=== PATIENT | male | born 1975 | race Caucasian/White ===

== ENCOUNTER 2017-07-11 17:31 | Emergency (ER) | payer BC ==
[~2017-07-11] VITALS: Ht 154.9 cm; Wt 120.9 kg
[2017-07-11 17:33] VITALS: Ht 154.9 cm; Wt 120.9 kg
[2017-07-11] MEDS ORDERED: AMLO-114 PO (18:09)
[2017-07-11] MEDS ORDERED: FEXO1TAB58 PO (18:09)
[2017-07-11] MEDS ORDERED: OPTIRAY 320 IV PRN (18:15)
[2017-07-11 18:31] LABS: ISTAT CREATININE 1.2 mg/dl (0.6-1.3); ISTAT HEMOGLOBIN 17.3 g/dl (14.0-18.0); ISTAT IONIZED CALCIUM 1.15 mmol/l (1.12-1.32)
[2017-07-11 18:38] LABS: BASO % 0.2 %; BASO ABS # 0.01 K/uL (0-0.2); COMPLETE YES; EOS % 0.7 %; IG% 0.2 %; LYMPH % 24.6 %; LYMPH ABS # 1.47 K/uL (1.2-3.4); MEAN CELL VOLUME 90.3 fL (80-100); MEAN CORPUSCULAR HEMOGLOBIN 31.2 pg (25-34); MEAN CORPUSCULAR HGB CONC 34.5 g/dl (32-36); NEUT % 64.3 %; PLATELET COUNT 158 K/uL (130-400); RED BLOOD COUNT 5.65 M/uL (4.7-6.1); WHITE BLOOD COUNT 5.98 K/uL (4.8-10.8)
[2017-07-11 18:45] LABS: BUN/CREATININE RATIO 10.8 (10-20); CALCIUM 9.2 mg/dl (8.5-10.1); CREATININE 1.1 mg/dl (0.60-1.40); POTASSIUM 3.9 mmol/L (3.5-5.1)
--- NOTE | 2017-07-11 18:53 | DIAGNOSTIC IMAGING REPORT ---
HEAD WITHOUT CONTRAST (CT) CLINICAL HISTORY: 41 years-old Male presenting with eval for mass/bleed, right side headache, right eye pressure. TECHNIQUE: Multidetector CT imaging of the head was performed without the use of intravenous contrast. IV contrast: None. A dose lowering technique was used consistent with the principles of ALARA (as low as reasonably achievable). COMPARISON: None. CT DOSE (mGy.cm): The estimated cumulative dose is 1204.42 mGy.cm. 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 Ventricles and sulci normal in size. Brain parenchyma normal in appearance with preserved grullon-white differentiation. No mass effect or midline shift. No hemorrhage or acute territorial infarct. No extra-axial fluid collection. Paranasal sinuses and mastoid air cells clear. Calvarium intact. Visualized portions of the right orbit normal appearing. IMPRESSION: 1. No acute intracranial pathology. Electronically signed by: Arnaldo Ruiz M.D. 07/11/2017 6:52 PM Dictated Date/Time: 07/11/2017 6:48 PM
--- NOTE | 2017-07-11 20:00 | DIAGNOSTIC IMAGING REPORT ---
CT SCAN OF THE ORBITS WITH IV CONTRAST CLINICAL HISTORY: Right-sided headache. Eye pressure. COMPARISON STUDY: No priors. TECHNIQUE: High-resolution CT scan of the orbits is performed following the IV administration of 120 mL of Optiray 320. Images are reviewed in the axial, sagittal, and coronal planes. IV contrast was administered without complication. A dose lowering technique was utilized adhering to the principles of ALARA. FINDINGS: The bony orbits are intact. Orbital contents are normal in appearance. There is no evidence of intra- or extraconal mass. The extraocular muscles are normal and symmetric. The periorbital soft tissues are within normal limits. There is trace mucosal thickening in the left maxillary antrum. The remaining paranasal sinuses are clear as imaged. The mastoid air cells are well pneumatized. The calvarium appears intact. The visualized brain parenchyma is within normal limits. Parotid glands are normal in appearance. IMPRESSION: Normal CT evaluation of the orbits. Dictated: 07/11/2017 6:49 PM Transcribed: 07/11/2017 8:00 PM [email or web address] Electronically signed by: Chuy Langston M.D. 07/11/2017 8:24 PM Dictated Date/Time: 07/11/2017 6:49 PM
--- NOTE | 2017-07-11 20:07 | EMERGENCY ROOM VISIT NOTE ---
History Report prepared by Ryan: Rubio Levy Under the Supervision of: Dr. Chuck Madison M.D. First contact with patient: 17:39 Chief Complaint: EYE PAIN Stated Complaint: EYE PRESSURE History of Present Illness The patient is a 41 year old male who presents to the Emergency Room with complaints of right eye pressure that began two days ago. He rates his pain a 2/ 10 in severity. About 5/6 days ago, the patient began to have a pressure headache with bilateral upper dental soreness. He went to the Dentist for a cleaning three days ago and was told that it may be sinusitis. He woke up in the morning two days ago and began having pressure in his right eye. His pressure worsens when he moves his eyes. He also began to experience a sore throat with some bilateral ear pain. He denies any fevers, seeing halos around lights, loss of vision, or changes in his color vision. He does note intermittent vision blurring, with his vision being blurry currently. Prior to arrival, the patient was at [facility] for his blurry vision. His results were 20/15 in his left eye and 20/25 in his right eye. They then referred him to the ER. He denies any glasses or contacts because of his Lasik eye surgery. He has a past medical history of hypertension. Source of History: patient Onset: two days ago Position: eye (right) Symptom Intensity: 2/10 Quality: pressure Timing: constant Modifying Factors (Worsening): movement (eye movement) Associated Symptoms: No fevers Note: He is having intermittent blurring of his vision. He denies any halos around lights, vision loss, or color changes. Review of Systems See HPI for pertinent positives & negatives. A total of 10 systems reviewed and were otherwise negative. Past Medical & Surgical Medical Problems: (1) HTN (hypertension) Family History Cancer Diabetes mellitus Hypertension Social History Smoking Status: Former Smoker Smokeless Tobacco Use: No Drug Use: none Marital Status: Housing Status: lives with family Occupation Status: employed Current/Historical Medications Scheduled Amlodipine (Norvasc), 10 MG PO QPM Fexofenadine-Pseudoephedrine (Nina-D 24 Hour Allergy), 180 MG PO QAM Allergies Coded Allergies: Lisinopril (Unverified Allergy, Unknown, SWELLING, ITCHY, 07/11/17) Molds & Smuts (Unverified Allergy, Unknown, ITCHY, 07/11/17) Physical Exam Vital Signs Date Time Temp Pulse Resp B/P (MAP) Pulse Ox O2 Delivery O2 Flow Rate FiO2 07/11/17 17:33 Room Air Physical Exam Constitutional: Vital signs reviewed. Eyes: Pupils are equal round reactive to light. Conjunctiva are noninjected. No papilledema on funduscopic examination. ENT: Pharynx is clear without erythema or exudate. Mucous membranes are moist. Neck supple without meningeal signs. Respiratory: Clear to auscultation bilaterally. Breath sounds are equal bilaterally. Cardiovascular: Regular rate and rhythm. No rubs or gallops. GI: Soft, nondistended and nontender. Bowel sounds are present. Musculoskeletal: No peripheral edema. Integumentary: No cyanosis. Neurologic: The patient is awake and alert. Cranial nerves II-XII are intact. Motor is 5 out of 5 all extremities. Sensation is intact to light touch all extremities. Normal speech. Normal gait. No pronator drift. Normal visual aguirre by confrontation. Psychiatric: Normal affect. Medical Decision & Procedures ER Provider Diagnostic Interpretation: Radiology results as stated below per my review and the radiologist's interpretation: HEAD WITHOUT CONTRAST (CT) CLINICAL HISTORY: 41 years-old Male presenting with eval for mass/bleed, right side headache, right eye pressure. TECHNIQUE: Multidetector CT imaging of the head was performed without the use of intravenous contrast. IV contrast: None. A dose lowering technique was used consistent with the principles of ALARA (as low as reasonably achievable). COMPARISON: None. CT DOSE (mGy.cm): The estimated cumulative dose is 1204.42 mGy.cm. 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 Ventricles and sulci normal in size. Brain parenchyma normal in appearance with preserved grullon-white differentiation. No mass effect or midline shift. No hemorrhage or acute territorial infarct. No extra-axial fluid collection. Paranasal sinuses and mastoid air cells clear. Calvarium intact. Visualized portions of the right orbit normal appearing. IMPRESSION: 1. No acute intracranial pathology. Electronically signed by: Arnaldo Ruiz M.D. 07/11/2017 6:52 PM Dictated Date/Time: 07/11/2017 6:[address] SCAN OF THE ORBITS WITH IV CONTRAST CLINICAL HISTORY: Right-sided headache. Eye pressure. COMPARISON STUDY: No priors. TECHNIQUE: High-resolution CT scan of the orbits is performed from the IV administration of 120 cc of Optiray 320. Images reviewed in the axial, sagittal , coronal planes. IV contrast was administered without complication. A dose lowering technique was utilized adhering to the principles of ALARA. FINDINGS: The bony orbits are intact. Orbital contents are normal in appearance. There is no evidence of intra or extraconal mas. The extraocular muscles are normal and symmetric. The periorbital soft tissues are within normal limits. There is trace mucosal thickening in the left maxillary antrum. The remaining paranasal sinuses are clear as imagine. The mastoid air cells are well pneumatized. The calvarium appears intact. The visualized brain parenchyma is within normal limits. The parotid glands are normal in appearance. IMPRESSION: Normal CT evaluation of the orbits. Laboratory Results 07/11/17 18:00 Red Blood Count 5.65, Mean Corpuscular Volume 90.3, Mean Corpuscular Hemoglobin 31.2, Mean Corpuscular Hemoglobin Concent 34.5, Mean Platelet Volume 11.0, Neutrophils (%) (Auto) 64.3, Lymphocytes (%) (Auto) 24.6, Monocytes (%) (Auto) 10.0, Eosinophils (%) (Auto) 0.7, Basophils (%) (Auto) 0.2, Neutrophils # (Auto ) 3.85, Lymphocytes # (Auto) 1.47, Monocytes # (Auto) 0.60, Eosinophils # (Auto ) 0.04, Basophils # (Auto) 0.01 07/11/17 18:00 Test 07/11/17 18:00 07/11/17 18:17 White Blood Count 5.98 K/uL (4.8-10.8) Red Blood Count 5.65 M/uL (4.7-6.1) Hemoglobin 17.6 g/dL (14.0-18.0) Hematocrit 51.0 % (42-52) Mean Corpuscular Volume 90.3 fL (80-100) Mean Corpuscular Hemoglobin 31.2 pg (25-34) Mean Corpuscular Hemoglobin Concent 34.5 g/dl (32-36) Platelet Count 158 K/uL (130-400) Mean Platelet Volume 11.0 fL (7.4-10.4) Neutrophils (%) (Auto) 64.3 % Lymphocytes (%) (Auto) 24.6 % Monocytes (%) (Auto) 10.0 % Eosinophils (%) (Auto) 0.7 % Basophils (%) (Auto) 0.2 % Neutrophils # (Auto) 3.85 K/uL (1.4-6.5) Lymphocytes # (Auto) 1.47 K/uL (1.2-3.4) Monocytes # (Auto) 0.60 K/uL (0.11-0.59) Eosinophils # (Auto) 0.04 K/uL (0-0.5) Basophils # (Auto) 0.01 K/uL (0-0.2) RDW Standard Deviation 41.8 fL (36.4-46.3) RDW Coefficient of Variation 12.7 % (11.5-14.5) Immature Granulocyte % (Auto) 0.2 % Immature Granulocyte # (Auto) 0.01 K/uL (0.00-0.02) Est Creatinine Clear Calc Drug Dose 98.6 ml/min Estimated GFR () 95.5 Estimated GFR (Non- 82.4 BUN/Creatinine Ratio 10.8 (10-20) Calcium Level 9.2 mg/dl (8.5-10.1) Bedside Hemoglobin 17.3 g/dl (14.0-18.0) Bedside Hematocrit 51 % (42-52) Bedside Sodium 139 mEq/L (135-144) Bedside Potassium 3.9 mEq/L (3.3-5.0) Bedside Chloride 101 mEq/L (101-112) Bedside Total CO2 26 mEq/l (24-31) Anion Gap 17.0 mmol/L (16-25) Bedside Blood Urea Nitrogen 12 mg/dl (7-18) Bedside Creatinine 1.2 mg/dl (0.6-1.3) Bedside Glucose (other) 84 mg/dl (70-99) Bedside Ionized Calcium (Joey) 1.15 mmol/l (1.12-1.32) Laboratory results as reviewed by me. Procedure Slit Lamp Examination Indication: Right eye pressure The right eye was prepped with topical proparacaine. Slit lamp examination was performed in the standard fashion. Cornea appeared normal. Anterior chamber appeared normal. Scleral injection not present. No discharge present. Fluorescein examination performed and revealed no uptake. No foreign bodies noted. Negative Onelia sign. The patient tolerated the procedure well without complication. ED Course 1738: The patient was evaluated in room B2. A complete history and physical exam was performed. 1799: I performed a slit lamp exam at this time. His intraocular pressure is 17 bilaterally. Please see the procedure note for more information. 1948: I spoke with Dr. Ibrahim of Ophthalmology at this time. We discussed the patient's case. They state that the patient should call him in the morning and they will see him in their office. 1999: Upon reevaluation, the patient appeared to have improvement of his symptoms. I discussed tonight's findings with him. He verbalized agreement of the treatment plan. He was discharged home. Medical Decision this is a 41-year-old male who presents with headache and right eye pressure. Differential diagnosis includes migraine headache, tension headache, glaucoma, mass, septal cellulitis. I did perform a limited focused review of portions of the patient's old chart on the electronic medical record. The patient has had no recent pertinent visits to this hospital. I did evaluate the patient as noted above. Patient is presenting with pressure behind his right eye and a right-sided headache. He describes his symptoms as mild. He does have a history of tension headaches. He is neurologically intact. His visual acuity was measured as 20/25 in the right eye at the urgent care center. His left eye was 20/15. I did measure his IOP which was 17 bilaterally. Funduscopic examination revealed no papilledema. His slit lamp examination was unremarkable bilaterally. IV access was established. I did order and review the patient's blood work as noted in the electronic medical record. Lab work is unremarkable. His white blood cell count is not elevated. I did order a CT of the head and orbits. I did review the images myself as well as the radiology report as described above. There is no evidence of acute intracranial abnormality. No mass or bleed. No septal hematoma or retrobulbar mass. His sinuses are clear. I did discuss the test results with the patient. I did discuss the case with Dr. Higgins of ophthalmology. He or his partner will see the patient tomorrow in the office. The patient was discharged in good condition. Medication Reconcilliation Current Medication List: was personally reviewed by me Consults Time Called: 1944 Consulting Physician: Dr. Ibrahim - Ophthalmology Returned Call: 1948 We discussed the patient's case. The patient is to call them in the morning to schedule a follow up. Impression Primary Impression: Acute headache Additional Impression: Visual disturbance Scribe Attestation The scribe's documentation has been prepared under my direct and personally reviewed by me in its entirety. I confirm that the note above accurately reflects all work, treatment, procedures, and medical decision making performed by me. Departure Information Dispostion Home / Self-Care Referrals Tre Gross M.D. (PCP) Forms HOME CARE DOCUMENTATION FORM, IMPORTANT VISIT INFORMATION, WORK / SCHOOL INSTRUCTIONS Patient Instructions My [facility] Additional Instructions You have been examined and treated today on an emergency basis only. This is not a substitute for, or an effort to provide, complete comprehensive medical care. It is impossible to recognize and treat all injuries or illnesses in a single emergency department visit. It is therefore important that you follow up closely with your physician and Dr Higgins or Dr. Dominguez of ophthalmology tomorrow. Call as soon as possible for an appointment. Return for worsening symptoms or if you develop fever, vomiting, loss of vision, numbness or weakness on one side of your body, difficulty with your speech or gait, or any other concerning symptoms. Problem Qualifiers Primary Impression: Acute headache Headache type: unspecified Intractability: not intractable Qualified Codes : R51 - Headache
[2017-07-11 20:11] VITALS: BP 143/98; PULSE 84; O2SAT 98
== END 2017-07-11 20:12 | disposition home or self-care (01) ==
LOC: C.EDB 17:32
DX: R51 Headache (principal); H53.9 Unspecified visual disturbance; I10 Essential (primary) hypertension; Z87.891 Personal history of nicotine dependence; Z88.8 Allergy status to other drugs, medicaments and biological substances; Z80.9 Family history of malignant neoplasm, unspecified; Z83.3 Family history of diabetes mellitus; Z82.49 Family history of ischemic heart disease and other diseases of the circulatory system